=== PATIENT | female | born 1950 | race Caucasian/White ===

== ENCOUNTER 2016-07-08 01:29 | Inpatient (IN) | payer MEDICARE, OTHER ==
--- NOTE | ~2016-07-08 | EEG ---
Electroencephalogram [id number] [place]. [address] NAME: FLORES PEÑA : 50 STATUS : ADM IN PAT#: [id number] AGE: 65 ADM/REG DATE : 07/08/16 MR#: [id number] REPORT SERV DATE: 07/09/16 DICTATED BY: DATE: REPORT STATUS : Draft TRANSCRIBED BY: MODL DATE: 07/09/16 NEUROLOGY EEG REPORT CLINICAL INDICATIONS: Intractable seizure. DESCRIPTION: This EEG was performed using 10/20 electrode placement system. During the EEG study, symmetric background activity was noted with predominant occipital rhythm of roughly 10 to 11 hertz. Photic stimulation was performed with appropriate driving response. Hyperventilation was not performed secondary to the patient's underlying medical condition. During the EEG study, the patient was noted to have episodes of sharp wave originating from the left temporal area in the T5 electrode, otherwise the patient achieved drowsy state. No focal abnormality was otherwise noted. The patient was noted to have no electrographic seizure during the EEG study. No clinical seizure was captured during the EEG study. INTERPRETATION: This EEG study obtained during awake and drowsy state may be considered mildly abnormal secondary to presence of sharp wave in the left temporal area concerning for underlying seizure focus or underlying structural abnormality. Clinical correlation is recommended. CLARA/ELEONORA Teodoro Andrew MD / [id number] CC: Barrie Perez IV, M.D.
--- NOTE | ~2016-07-08 | HP ---
History And Physical [facility] [address] [place]. [address] NAME: FLORES PEÑA : 50 STATUS : ADM IN [facility]#: [id number] AGE: 65 ADM/REG DATE : 07/08/16 MR#: [id number] REPORT SERV DATE: 07/08/16 DICTATED BY: IDA PEREZ IV DATE: 07/08/16 REPORT STATUS : Draft TRANSCRIBED BY: ELEONORA DATE: 07/08/16 DATE OF ADMISSION: 07/08/2016 REASON FOR ADMISSION: Multiple seizures. HISTORY OF PRESENT ILLNESS: History was obtained from the patient. There are minimal records in the [facility] database for this patient. This a 65-year-old female with a reported history of seizure disorder since 1988, currently followed by Dr. Queen, who was transferred from [facility] with three seizures today. The patient carries the diagnoses of the seizure disorder as noted, hypertension, reflux disease, depression, and obstructive sleep apnea, noncompliant with CPAP. She has had seizures by her estimate monthly since 1988. The described the seizures as her extremities getting rigid and typically her pointing with her right hand into space. She is not aware of the events and there is sometimes some movement as well. She had more significant events today for which he took her to the ER. There was no loss of bowel or bladder incontinence. There may be minimal trauma to the tip of her tongue though no significant trauma. She is reportedly unresponsive after the event though it is very difficult to get out of either the patient or her the duration of this. The patient will say at times she feels washed out for 24 hours. She has been compliant with her antiseizure medications. She did fall and reportedly struck her forehead several days ago though the more frequent seizures occurred prior to this. She is now been having them several times a day. She had two events and then one in the emergency room, though this was not witnessed by the transferring physician. Because of the frequency, it was felt that neurologic evaluation was required. Dr. Queen is at [facility], however, they reportedly had no ICU beds, so she is transferred here. She denies any fevers, chills, or sweats, dysuria or increased urinary urgency or frequency. Urinalysis at [facility] did demonstrate some white blood cells for which she was started on antibiotic therapy and cultures were sent. She has had a headache, which she has had in the past and is usually relieved with Motrin. She otherwise has a nonfocal complaints. The patient additionally has various types of chest discomfort that are often shooting from both axillary spaces across her chest though she also has a "hard feeling" in her chest that occurs at times, these may last seconds or all day. Because of these complaints, the emergency room did a troponin, which was just above there, a low level of normal. PULMONARY HISTORY: Remarkable for no history of childhood asthma or known adult obstructive lung disease. The patient has no pneumonia in the past. She has a 30 pack-year smoking history, having quit 20 years ago. She was a nurse by occupation. She is not up-to-date on immunizations. PAST MEDICAL HISTORY: 1. Hypertension. 2. Seizure disorder. 3. Reflux disease. 4. Depression. 5. Obstructive sleep apnea, noncompliant with CPAP. SURGERIES: History And Physical [address] [address] NAME: FLORES PEÑA : 50 STATUS : ADM IN [facility]#: [id number] AGE: 65 ADM/REG DATE : 07/08/16 MR#: [id number] REPORT SERV DATE: 07/08/16 DICTATED BY: IDA PEREZ IV DATE: 07/08/16 REPORT STATUS : Draft TRANSCRIBED BY: ELEONORA DATE: 07/08/16 1. Rectocele repair. 2. Bilateral tubal ligation. 3. Laparoscopic cholecystectomy. 4. Gastric bypass. ALLERGIES: NO KNOWN DRUG ALLERGIES, THOUGH SHE IS INTOLERANT OF BOTH PHENOBARBITAL AND MORPHINE. OUTPATIENT MEDICATIONS: Aspirin 81 mg daily, Prozac 20 mg in the morning and 40 mg in the afternoon, [place] three times a day for osteoarthritis, Lamictal 200 mg twice a day, Keppra 500 mg twice a day, Cozaar 50 mg daily, and potassium 10 mEq daily. SOCIAL HISTORY: Remarkable for no tobacco, alcohol, or illicit drug use. She is , has two children. FAMILY HISTORY: Remarkable for mother with lung cancer and COPD. Father with coronary artery disease. Brother with coronary artery disease, hypertension, and diabetes mellitus. REVIEW OF SYSTEMS: 14-systems reviewed, pertinent positives as noted above. PHYSICAL EXAMINATION: GENERAL: This is an obese, elderly female, in no acute distress. VITAL SIGNS: Blood pressure is 135/68, pulse is 85, respiratory rate is 20, saturation 98% on 2 L, temperature is 99. HEENT: Normocephalic, atraumatic. Extraocular movements are intact. Pupils react to light. Sclerae and conjunctivae normal. She has a nasal cannula in place. She has a Mallampati III to IV airway with significant narrowing of the posterior pharyngeal space. No other oral lesions are noted. She does have minimal trauma to the very tip of her tongue. NECK: Without any palpable lymphadenopathy or thyromegaly. CHEST: Breath sounds are symmetrically decreased with a normal expiratory phase. No wheezes, rhonchi, or crackles are noted. CARDIOVASCULAR: Jugular venous pulsations difficult to elicit. She has 2+ carotid upstrokes. She has a somewhat distant regular S1, S2 with no clear murmur, S3, S4. Peripheral pulses are diminished. ABDOMEN: Morbidly obese. Surgical scars noted. Soft. There are hypoactive bowel sounds. There is no palpable hepatosplenomegaly or masses. EXTREMITIES: Demonstrate no cyanosis, clubbing, edema, or palpable cords. There was no evidence for trauma. NEUROLOGIC: Currently strength is 5/5 and symmetric. Sensation is intact to light touch. Cranial nerves are grossly intact. Fine motor is relatively normal with minimal past- pointing. LABS: Head CT scan at [facility] was unremarkable. Chemistry: Sodium 141, potassium 4.3, chloride 108, bicarb 20, BUN 12, creatinine 0.9, glucose 112. The alkaline phosphatase was slightly elevated at 188. CBC: Hemoglobin 13.3, hematocrit 42.8, platelet count was 256,000, white blood cell count was 10.2. INR and PTT were normal. Urine demonstrated 49 History And Physical [address] [address] NAME: FLORES PEÑA : 50 STATUS : ADM IN [facility]#: [id number] AGE: 65 ADM/REG DATE : 07/08/16 MR#: [id number] REPORT SERV DATE: 07/08/16 DICTATED BY: IDA PEREZ IV DATE: 07/08/16 REPORT STATUS : Draft TRANSCRIBED BY: ELEONORA DATE: 07/08/16 white blood cells with positive leukocyte esterase, which is being repeated and troponin is 0.17. ASSESSMENT/PLAN: 1. Neurologic. Description of the seizures is somewhat atypical, though we will continue the evaluation. Seizure precautions have been instituted. She remained on the Lamictal. Keppra will be continued IV. She will be given Ativan for any further events. EEG will be obtained in the morning. We will ask Neurology to evaluate the patient. The patient will be given ibuprofen for headaches, which has worked in the past. She has no evidence for meningitis. 2. Respiratory. Oxygen will be provided as needed to maintain saturations in the 90% to 94% range. X-ray will be obtained with a previous smoking history. The patient has obstructive sleep apnea, though is noncompliant with CPAP. The adverse cardiopulmonary effects of untreated sleep apnea were reviewed. 3. Infectious disease. The patient has some pyuria on the initial labs at [facility]. Cultures have been sent. We will repeat urinalysis. Ceftriaxone will be continued for now. Florastor will be given one twice a day, Prevnar 13 at discharge. 4. Cardiovascular. The patient will remain on outpatient blood pressure medications, hydralazine will be given as needed for elevated blood pressure. EKG will be obtained. The chest pain is very atypical for angina, though we will repeat a troponin since it was minimally elevated there. 5. Hematologic. Lovenox for deep vein thrombosis prophylaxis. 6. Renal. Magnesium phosphate and potassium will be obtained with electrolyte replacement protocol ordered. 7. Gastrointestinal. We will give clear liquids for now. Advance diet in the morning. We will repeat the alkaline phosphatase to see if it is still elevated. 8. Endocrinologic. Thyroid functions will be obtained. The patient will be admitted to the ICU and we will ask Neurology to evaluate the patient later this morning. NM/MODL Ida Perez IV, M.D. / [id number] CC: Ida Perez IV, M.D.
--- NOTE | ~2016-07-08 | DS ---
Discharge Summary [facility] [address] [place]. [address] NAME: FLORES SALCEDO : 50 STATUS : DIS IN PAT#: [id number] AGE: 65 ADM/REG DATE : 07/08/16 MR#: [id number] REPORT SERV DATE: 07/11/16 DICTATED BY: ISHMAEL ROSS DATE: 07/10/16 REPORT STATUS : Draft TRANSCRIBED BY: MODAileen DATE: 07/10/16 ADMISSION DATE: 07/08/2016 DISCHARGE DATE: 07/10/2016 CONDITION ON DISCHARGE: Stable. DISPOSITION: Discharged to home. ADVICE ON DISCHARGE: To follow up with neurologist Dr. Queen in two to three weeks. DIAGNOSES ON DISCHARGE: 1. Acute seizure disorder/uncontrolled. Probably secondary to medications that did not agree with the patient. The patient attributes this to Keppra that gave her confusion, fatigue, etc. Anyway, the patient's seizure disorder has been controlled now, and her Keppra has been stopped, and now the patient has been put on Zonegran. 2. Hypertension. 3. Left ventricular hypertrophy with normal ejection fraction at LVEF of 50%. 4. Nonspecific elevation in troponin I, probably secondary to demand related. 5. Depression-stable, obstructive sleep apnea, gastroesophageal reflux disease; which are all chronic. BRIEF HOSPITAL COURSE: Ms Salcedo is a 65-year-old white female patient, who was admitted with signs and symptoms as outlined in the H and P. Essentially, she was admitted with uncontrolled seizures, and as her troponin I was also elevated at that time, one was not sure if she did have an acute coronary syndrome that caused her to have a seizure or vice versa, or if there was even a cardiac problem at all. Hence, she was watched in the ICU for two days, and then transferred onto the floor on 07/09/2016 in stable condition. Neurology was consulted, and Cardiology was consulted. Neurology adjusted her antiepileptic medications and discontinued her Keppra. She continues to be on Lamictal, and she continues to be on now a new medication Zonegran. The dosages will be mentioned below. As there was an elevation in troponin I, the patient underwent myocardial perfusion test. After this, the patient even underwent a coronary angiogram. Coronary angiogram showed no blockages in any of the coronary arteries. Ultrasound/echocardiogram of the heart showed that the patient did have left ventricular hypertrophy, and an ejection fraction of 50%. The wall motion abnormalities that was described in the catheterization report was probably artifact. Hence, the patient is now asymptomatic, and her troponin I elevation is most likely secondary to demand related. Now that the patient's seizures have been controlled also, the patient is asking to go home, and hence she is being discharged. The patient had an EEG that did show uncontrolled seizures on 07/09/2016, but once medications have been adjusted and the patient has been taking these medications for a while, this should stabilize. Neurology also ordered a CT scan and an MRI of the brain that came back with atrophy and no acute abnormalities at this time. Discharge Summary [id number] [facility] [place]. [address] NAME: FLORES SALCEDO : 50 STATUS : DIS IN PAT#: [id number] AGE: 65 ADM/REG DATE : 07/08/16 MR#: [id number] REPORT SERV DATE: 07/11/16 DICTATED BY: ISHMAEL ROSS DATE: 07/10/16 REPORT STATUS : Draft TRANSCRIBED BY: ELEONORA DATE: 07/10/16 Hence, she is being sent home on the following medications. The only new medication that has been added to her list of medications include Zonegran 300 mg that she is going to take at bedtime or zonisamide that she will take at bedtime 300 mg. She will continue to take Lamictal 200 mg p.o. b.i.d., Prozac 20 mg in the morning and 40 mg at bedtime, Cozaar 50 mg once a day, [place] 5/325 one p.o. t.i.d. p.r.n. for severe pain, aspirin 81 mg once a day, potassium 10 mEq p.o. daily, Lipitor 40 mg once a day which is a new medication also, and Coreg 3.125 mg p.o. b.i.d. which is also a new medication as recommended by Cardiology. The patient's Keppra has been discontinued. The patient had a chest x-ray that did not show any acute cardiopulmonary abnormality at this time. Her CBC shows completely normal WBC, hemoglobin, hematocrit, and platelets at this time. Her CK-MB profile came back normal, but as mentioned above, there was an elevation in her troponin I most likely secondary to demand related. Troponin I nicely came down also and the most recent one that I have is 1.54. Essentially, her lipid profile also have come back normal with a total cholesterol of 114, HDL of 48, LDL of 47, and triglycerides of 96. CPK is 80, CK-MB is 2.9. Her BUN and creatinine are normal at 10 and 0.82. Hence, she is being sent home in stable condition as she is requesting to go home today with the above medication adjustments. I have spent about 40 minutes in coordinating discharge care of this patient including face- to-face encounter. WYATT/ELEONORA Ishmael Ross M.D. / [id number] CC: Barrie Perez IV, M.D.
--- NOTE | ~2016-07-08 | CN ---
Consultation Report [facility] [address] [place]. [address] NAME: FLORES SALCEDO : 50 STATUS : ADM IN PAT#: [id number] AGE: 65 ADM/REG DATE : 07/08/16 MR#: [id number] REPORT SERV DATE: 07/08/16 DICTATED BY: SIDDHARTH RODRIGEZ DATE: 07/08/16 REPORT STATUS : Draft TRANSCRIBED BY: ELEONORA DATE: 07/08/16 DATE OF CONSULTATION: 07/08/2016 REASON FOR CONSULTATION: N-STEMI. HISTORY OF PRESENT ILLNESS: Ms. Salcedo is a pleasant 65-year-old female with a history of sleep apnea, off CPAP, significant and chronic seizure disorder (atypical), former tobacco smoker (about 30-pack years), GERD, depression, and hypertension, who presented after having a fall as well as multiple seizures per day over the past week or two. She states that she had been in her usual state of health, which included an occasional seizure (approximately a frequency of one time per month) up until recently when she started to notice an increase in her seizures. Her seizures are not typical. They have been occurring multiple times a day and include periods of her feeling out of it. She describes these poorly. Otherwise, she states that she did fall once over the past few weeks, which she attributes to tripping on a ledge. She otherwise has not fallen or lost consciousness per her report. She does endorse having chest pressures and fullness. Her chest pressures and fullness have started over the past few months and have increased in frequency lately. In addition, she has significant dyspnea on exertion, which she attributed to aging. She was not significantly dyspneic with her day-to-day activities in the past year, however, over the past few months, this has progressed. She otherwise denies having any other symptoms at this time. ALLERGIES: MORPHINE AND PHENOBARBITAL. PAST MEDICAL HISTORY: As above. SOCIAL HISTORY: The patient lives at home with her family. She is a former tobacco smoker as above. She denies drinking alcohol or doing drugs. She functions independently under normal circumstances. FAMILY HISTORY: Significant for myocardial infarction in her brother who is 64 years old. REVIEW OF SYSTEMS: As above, all other systems otherwise negative. HOME MEDICATIONS: 1. Aspirin 81 mg p.o. daily. 2. Prozac. 3. [place]. 4. Lamictal. 5. Keppra. 6. Cozaar 50 mg p.o. daily. 7. Potassium. PHYSICAL EXAMINATION: Consultation Report [id number] [place]. [address] NAME: FLORES SALCEDO : 50 STATUS : ADM IN PAT#: [id number] AGE: 65 ADM/REG DATE : 07/08/16 MR#: [id number] REPORT SERV DATE: 07/08/16 DICTATED BY: SIDDHARTH RODRIGEZ DATE: 07/08/16 REPORT STATUS : Draft TRANSCRIBED BY: ELEONORA DATE: 07/08/16 VITAL SIGNS: Blood pressure 130 to 140 over 60 to 70, pulse 80, sinus rhythm, 98% on nasal cannula 2 L. GENERAL: Well developed, well nourished, no acute distress. NEURO: Awake, alert and oriented x3; no focal deficits, appropriate mood. HEENT: Moist mucous membranes, anicteric sclerae, no nasal discharge. NECK: No JVD, no carotid bruit. LUNGS: Clear to auscultation bilaterally, no wheezes, rales or rhonchi. CV: Regular rhythm, normal S1/S2, no murmurs, rubs or gallops. ABDOMEN: Soft, non-tender, non-distended, no rebound or guarding. EXTREMITIES: No pitting edema, normal distal pulses. SKIN: Warm, dry and intact; no rash. PERTINENT TEST FINDINGS: Troponin 0.17 and 4.23. Chest x-ray, negative for acute cardiopulmonary abnormality. Brain CT without contrast, negative for acute intracranial abnormality. Potassium 3.9, creatinine 0.76, albumin 3.3. EKG from this morning demonstrates sinus rhythm, possible evolving anteroseptal infarct. Echocardiogram with cursory bedside review demonstrates anteroseptal hypocontractility and inferoseptal hypocontractility. IMPRESSION AND PLAN: Ms. Salcedo is a very pleasant 65-year-old female with a history of seizure disorder (long-standing, atypical), former tobacco smoker, sleep apnea, off continuous positive airway pressure and hypertension, who presents with an increase in the frequency of her atypical seizures, as well as atypical angina and dyspnea on exertion with findings of an elevated troponin as well as wall motion abnormalities on an echocardiogram most consistent with a [id number] myocardial infarction. Accordingly, I have the following recommendations by problem below: 1. Lxt-HR-jamfawzye myocardial infarction-n.p.o. after midnight for possible coronary angiogram with possible percutaneous coronary intervention tomorrow. I have discussed the risks and benefits of this procedure including, but not limited to myocardial infarction, , stroke, and kidney injury, the patient voiced understanding and is amenable with proceeding. Otherwise aspirin, heparin drip if okay with Neurology and Critical Care. She would also benefit from a low-dose beta-javier at this time and a statin. I will follow up on the full results of the echocardiogram upon review of the study. Otherwise, continue cardiac telemetry monitoring and trending cardiac enzymes. 2. Seizure disorder-currently looking well. Atypical seizures, to be worked up by Neurology for this. 3. Sleep apnea-It will be helpful if she were to be able to comply with nightly CPAP. 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 4. Hypertension-as above. VR/ELEONORA Siddharth Consultation Report [address] [place]. [address] NAME: FLORES SALCEDO : 50 STATUS : ADM IN [facility]#: [id number] AGE: 65 ADM/REG DATE : 07/08/16 MR#: [id number] REPORT SERV DATE: 07/08/16 DICTATED BY: SIDDHARTH RODRIGEZ DATE: 07/08/16 REPORT STATUS : Draft TRANSCRIBED BY: ELEONORA DATE: 07/08/16 MD Eleno / [id number] CC: Barrie Perez IV, M.D.
--- NOTE | ~2016-07-08 | CN ---
Consultation Report [facility] [address] [place]. [address] NAME: FLORES PEÑA : 50 STATUS : ADM IN PAT#: [id number] AGE: 65 ADM/REG DATE : 07/08/16 MR#: [id number] REPORT SERV DATE: 07/08/16 DICTATED BY: DATE: REPORT STATUS : Draft TRANSCRIBED BY: MODL DATE: 07/08/16 NEUROLOGY CONSULTATION DATE OF CONSULTATION: 07/08/2016 REASON FOR CONSULT: Intractable seizure. HISTORY OF PRESENT ILLNESS: This is a 65-year-old female who presented to [facility] as an outside hospital transfer secondary to seizure. The patient was noted to have longstanding seizure history since 1988 with the patient previously was on Depakote for seizure control, reports 12 years seizure-free on Depakote; however, the patient was taken off Depakote secondary to mild elevation of liver enzymes. Since then the patient reports trying several different seizure medications without significant control of her seizure with her seizure frequency ranging from once a week to once every month to every other month. The patient reports being on Lamictal for several months and currently on Keppra 500 mg p.o. b.i.d. which was relatively new. The patient complains of dizziness and fatigue while on Keppra without any significant improvement. The patient, prior to the hospitalization, denies any fever, chills, nausea, vomiting, chest pain, or shortness of breath. The patient, unfortunately is unable to characterize her seizure activity but denies any previous seizure aura or previous warning prior to seizure. The patient does report, prior to her latest seizure, she does have some anxiety about 10 to 15 minutes prior to the seizure onset with the patient's seizure can happen in clusters. The patient recently has had cluster of seizures prompting the patient to be admitted to the ICU. The patient reports the seizure typically lasts under 5 minutes with the patient's latest seizure apparently lasted 3 minutes afterwards. The patient was noted to be tired, fatigued as well as confused. The patient previously sees Dr. Queen and continues follow with him with the patient reports the last appointment occurred roughly several months ago. The patient does complain of some chest pain overnight and headache last night but denies any current headache and denies any recent illness and no recent fever or chill was otherwise reported. PAST MEDICAL HISTORY: The patient's past medical history is significant for hypertension, longstanding seizure disorder since 1988, history of gastroesophageal reflux disease, depression, and obstructive sleep apnea, noncompliant with CPAP. ALLERGIES: THE PATIENT WAS NOTED TO HAVE ALLERGY TO PHENOBARBITAL WELL MORPHINE. SOCIAL HISTORY: Denies tobacco, alcohol, or recreational drug usage. FAMILY HISTORY: Significant for lung cancer, COPD, coronary artery disease, hypertension, and diabetes. MEDICATIONS: The patient's medications consist of aspirin, Prozac, [place], Lamictal, Keppra, Cozaar, and potassium. Consultation Report [place] [id number] [place]. [address] NAME: FLORES PEÑA : 50 STATUS : ADM IN [facility]#: [id number] AGE: 65 ADM/REG DATE : 07/08/16 MR#: [id number] REPORT SERV DATE: 07/08/16 DICTATED BY: DATE: REPORT STATUS : Draft TRANSCRIBED BY: MODL DATE: 07/08/16 REVIEW OF SYSTEMS: Negative except for those mentioned in the HPI. PHYSICAL EXAMINATION: VITAL SIGNS: At the time of evaluation, the patient was noted to have vital signs with T- max of 99.0, heart rate of 78 to 86, respirations of 13 to 22, and blood pressure of 115 to 143 over 62 to 73. GENERAL: The patient is well developed, well nourished, in no acute distress. CARDIOVASCULAR: Regular rate and rhythm. No carotid bruits were otherwise auscultated. PULMONARY: Examination was clear to auscultation bilaterally. NEUROLOGICAL: Generally, the patient is alert, oriented to person, place, year, and month. Follows simple and 2-step commands. No dysarthria. No aphasia was noted. Intact registration. Some difficulties with recall at the time of evaluation. Cranial nerves 2 through 12, pupils equal, round, and reactive to light. Extraocular eye movement was noted to be intact with intact nnpac-kz-[id number] response. Symmetrical facial expression. Sensation midline. Tongue normal. Normal palatal movement. Minimal decreased hearing in bilateral ears. The patient demonstrated 5/5 bilateral upper and lower extremity strength with the patient noted to have normal gboovd-el-dgwu examination without ataxia. 2+ reflexes throughout. Downgoing toe on bilateral plantar reflexes. Gait evaluation was deferred secondary to the patient's recent seizure. LABORATORY STUDIES: Demonstrated procalcitonin of less than 0.05, sodium 141, potassium 3.9, chloride 108, bicarb 23, BUN of 12, creatinine of 0.76, glucose of 108, calcium of 8.3, magnesium 2.1, folate of 40.8, vitamin B12 of 662, TSH of 1.19, and free T4 of 1.23. White blood cell count of 12.1, hemoglobin was 13.1, hematocrit 39.8, and platelet count was 322. Urinalysis demonstrated negative leukocyte esterase, negative nitrite. CT scan of the brain was reviewed. Mild generalized atrophy was seen but otherwise no acute events was noted. IMPRESSION: Intractable seizure. The patient does have a history of seizure since 1988 with the patient noted previously well controlled seizure on Depakote; however, the patient's Depakote was discontinued secondary to elevated liver enzymes. The patient reports difficult to control seizure since discontinuing Depakote. At this time, we will continue Lamictal as well as tapering Keppra dosage. We will also add Zonegran to the patient's seizure medication. We will obtain MRI of the brain without contrast as well as obtain EEG study. RECOMMENDATIONS: 1. Continue Lamictal. 2. We will decrease Keppra to 250 mg p.o. b.i.d. 3. We will add Zonegran 200 mg p.o. at bedtime. 4. MRI of the brain without contrast. 5. EEG 07/09/2016. [facility]/MOD Consultation Report [address] [place]. [address] NAME: FLORES PEÑA : 50 STATUS : ADM IN [facility]#: [id number] AGE: 65 ADM/REG DATE : 07/08/16 MR#: [id number] REPORT SERV DATE: 07/08/16 DICTATED BY: DATE: REPORT STATUS : Draft TRANSCRIBED BY: ELEONORA DATE: 07/08/16 Teodoro Andrew MD / [id number] CC: Barrie Perez IV, M.D.
[~2016-07-08 01:29] MED LIST: ANADS PO; COZ50 PO; DSS PO; IRON TAB PO; LAMICTAL200 MG PO; NORCO1 TA1 PO; PCET PO; PROZAC PO; PROZAC40 MG PO; TOPAMAX100 PO; V5 PO
[2016-07-08] MEDS ORDERED: ASAB PO (01:54)
[2016-07-08] MEDS ORDERED: KLOR-CON M1010 MEQ PO (01:55)
[2016-07-08] MEDS ORDERED: KEPPRA500 PO (01:57)
[2016-07-08 04:32] LABS: ASCORBIC ACID (UR NOT ORDER) NEG (NEG); BILIRUBIN, URINE NEGATIVE (NEG); KETONE, URINE NEGATIVE (NEG); LEUKOCYTE ESTERASE(NOT OR NEG (NEG); WBC (NOT ORDERED) (RFLEX) 5 (0-5)
[2016-07-08 04:47] LABS: BASOPHILS 0.3 %; BASOPHILS ABSOLUTE 0.04 10/3/uL (0.0-0.16); EOSINOPHILS 0.7 %; EOSINOPHILS ABSOLUTE 0.08 10/3/uL (0.0-0.53); HEMATOCRIT 39.8 % (36.0-48.0); HEMOGLOBIN 13.1 g/dL (12.0-16.0); IMMATURE GRANULOCYTES 0.2 %; IMMATURE GRANULOCYTES ABSOLUTE 0.03 10/3/uL (0.0-0.11); LYMPHOCYTES 21.5 %; MEAN CORPUSCULAR HEMOGLOB 27.6 pg (26.0-34.0); MEAN PLATELET VOLUME 10.5 fL (9.2-13.0); MONOCYTES ABSOLUTE 0.73 10/3/uL (0.21-1.20); NEUTROPHILS 71.3 %; NEUTROPHILS ABSOLUTE 8.63 10/3/uL (2.02-8.40); PLATELET COUNT 322 10/3/uL (150-400); RBC DISTRIBUTION WIDTH 17.4 % (12.0-16.0); RED CELL COUNT 4.74 10/6/uL (4.0-5.6); WHITE BLOOD CELLS 12.1 10/3/uL (4.5-10.5)
[2016-07-08 04:49] LABS: MANUAL DIFF NO %; MEAN CORPUS HGB CONC 32.9 g/dL (32.0-36.0)
[2016-07-08 05:40] LABS: ALBUMIN 3.3 G/DL (3.5-5.0); ALKALINE PHOSPHATASE 252 U/L (45-117); BUN (BLOOD UREA NITROGEN) 12 MG/DL (6-23); CALCIUM, SERUM 8.3 MG/DL (8.5-10.4); CHLORIDE, SERUM 108 MMOL/L (96-112); CO2 (CARBON DIOXIDE) 23 MMOL/L (24-34); CREATININE 0.76 MG/DL (0.55-1.02); FOLATE 40.8 NG/ML (>5.2); FREE T4 1.23 NG/DL (0.76-1.46); GFR AFRICAN AMERICAN 95 ML/MIN (>=60); GFR NON AFRICAN AMERICAN 82 ML/MIN (>=60); GLOBULIN 3.3 G/DL (2.5-4.1); GLUCOSE, SERUM 108 MG/DL (60-99); PHOSPHORUS, SERUM 3.1 MG/DL (2.5-4.5); POTASSIUM, SERUM 3.9 MMOL/L (3.5-5.3); SGOT(AST) 28 U/L (5-40); SGPT(ALT) 36 U/L (5-65); SODIUM, SERUM 141 MMOL/L (135-148); TOTAL BILIRUBIN 0.2 MG/DL (0-1.2); TOTAL PROTEIN 6.6 G/DL (6.0-8.5)
[2016-07-08 05:41] LABS: TROPONIN I 4.23 NG/ML (<0.05)
[2016-07-08 07:05] LABS: PROCALCITONIN <0.05 ng/mL (<0.5)
[2016-07-08 12:10] LABS: CK-MB 6.6 NG/ML; CKMB INDEX (NOT ORD) 5.5; TROPONIN I 4.18 NG/ML (<0.05)
[2016-07-08 20:43] LABS: INTERNATIONAL NORMAL RATI 1.1 UNITS (-); PROTIME (NOT ORD) 14.5 SEC (12.0-14.5)
[2016-07-08 20:44] LABS: PARTIAL THROMBO TIME 55.4 SEC (22.5-37.2)
[2016-07-08 21:00] LABS: CPK 114 U/L (0-200)
[2016-07-08 21:02] LABS: CK-MB 4.2 NG/ML
[2016-07-08 21:03] LABS: TROPONIN I 2.31 NG/ML (<0.05)
[2016-07-09 03:57] LABS: BASOPHILS 0.6 %; BASOPHILS ABSOLUTE 0.05 10/3/uL (0.0-0.16); EOSINOPHILS 3.3 %; EOSINOPHILS ABSOLUTE 0.27 10/3/uL (0.0-0.53); HEMATOCRIT 39.3 % (36.0-48.0); HEMOGLOBIN 12.7 g/dL (12.0-16.0); IMMATURE GRANULOCYTES 0.2 %; IMMATURE GRANULOCYTES ABSOLUTE 0.02 10/3/uL (0.0-0.11); LYMPHOCYTES 34.6 %; LYMPHOCYTES ABSOLUTE 2.83 10/3/uL (0.67-4.30); MEAN CORPUS HGB CONC 32.3 g/dL (32.0-36.0); MEAN CORPUSCULAR HEMOGLOB 27.3 pg (26.0-34.0); MEAN CORPUSCULAR VOLUME 84.3 fL (80-100); MEAN PLATELET VOLUME 10.5 fL (9.2-13.0); MONOCYTES 9.2 %; MONOCYTES ABSOLUTE 0.75 10/3/uL (0.21-1.20); NEUTROPHILS 52.1 %; NEUTROPHILS ABSOLUTE 4.26 10/3/uL (2.02-8.40); PLATELET COUNT 276 10/3/uL (150-400); RBC DISTRIBUTION WIDTH 17.3 % (12.0-16.0); RED CELL COUNT 4.66 10/6/uL (4.0-5.6); WHITE BLOOD CELLS 8.2 10/3/uL (4.5-10.5)
[2016-07-09 03:58] LABS: MANUAL DIFF NO %
[2016-07-09 04:16] LABS: BUN (BLOOD UREA NITROGEN) 10 MG/DL (6-23); CALCIUM, SERUM 8.4 MG/DL (8.5-10.4); CHLORIDE, SERUM 106 MMOL/L (96-112); CHOL/HDL RATIO(NOT ORDER) 2.4 (0-5); CHOLESTEROL 114 MG/DL (< 200); CO2 (CARBON DIOXIDE) 27 MMOL/L (24-34); CREATININE 0.82 MG/DL (0.55-1.02); GFR AFRICAN AMERICAN 87 ML/MIN (>=60); GFR NON AFRICAN AMERICAN 75 ML/MIN (>=60); GLUCOSE, SERUM 103 MG/DL (60-99); HDL CHOLESTEROL 48 MG/DL (> 49); LDL CHOLESTEROL 47 MG/DL (< 130); NON-HDL CHOLESTEROL 66 MG/DL (< 160); POTASSIUM, SERUM 3.7 MMOL/L (3.5-5.3); SGPT(ALT) 45 U/L (5-65); SODIUM, SERUM 142 MMOL/L (135-148); TRIGLYCERIDE 96 MG/DL (< 150)
[2016-07-09 04:24] LABS: CK-MB 2.9 NG/ML; CPK 80 U/L (0-200); TROPONIN I 1.54 NG/ML (<0.05)
[2016-07-10] MEDS ORDERED: LIPITOR40 PO (16:43)
[2016-07-10] MEDS ORDERED: ZONEGRAN ×2 (16:46→16:47)
[2016-07-10] MEDS ORDERED: COREG3 PO (16:48)
[2016-07-30] MEDS ORDERED: BRIVIACT50 MG PO (10:26)
[2016-07-30] MEDS ORDERED: ASABAYER PO (10:26)
== END 2016-07-10 18:22 | disposition home or self-care (01) | DRG 281 ==
LOC: CCU 01:29 → SSU1 07-09 10:58 → 7NO 07-09 16:00
PROVIDERS: Internal Medicine Critical Care Medicine; Student in an Organized Health Care Education/Training Program
PROC: 4A023N7 Measurement of Cardiac Sampling and Pressure, Left Heart, Percutaneous Approach (ICD-10-PCS; principal; 2016-07-09)
PROC: B2111ZZ Fluoroscopy of Multiple Coronary Arteries using Low Osmolar Contrast (ICD-10-PCS; 2016-07-09)
PROC: B2151ZZ Fluoroscopy of Left Heart using Low Osmolar Contrast (ICD-10-PCS; 2016-07-09)
DX: I21.4 Non-ST elevation (NSTEMI) myocardial infarction (principal); G40.919 Epilepsy, unspecified, intractable, without status epilepticus; Z99.81 Dependence on supplemental oxygen; I25.10 Atherosclerotic heart disease of native coronary artery without angina pectoris; I10 Essential (primary) hypertension; K21.9 Gastro-esophageal reflux disease without esophagitis; F32.9 Major depressive disorder, single episode, unspecified; G47.33 Obstructive sleep apnea (adult) (pediatric); Z82.5 Family history of asthma and other chronic lower respiratory diseases; Z98.890 Other specified postprocedural states; Z82.49 Family history of ischemic heart disease and other diseases of the circulatory system; Z88.3 Allergy status to other anti-infective agents; Z88.5 Allergy status to narcotic agent; Z80.1 Family history of malignant neoplasm of trachea, bronchus and lung; Z68.36 Body mass index [BMI] 36.0-36.9, adult; E66.9 Obesity, unspecified; Z23 Encounter for immunization
CPT/HCPCS: 70450; 70551; 71010; 80048; 80053; 80061; 81001; 82550; 82553; 82607; 82746; 83735; 84100; 84145; 84439; 84443; 84460; 84484; 85025; 85610; 85730; 87641; 90670; 93005; 93306; 93458; 95816; 99152; A9270-GY; C1769; C1887; C1894; G0009; J1170; J1953; J2250; J3010; Q9957; Q9967